=== PATIENT | female | born 1965 | race Caucasian/White ===

== ENCOUNTER 2021-06-21 12:24 | Inpatient (IN) ==
[~2021-06-21 12:24] MED LIST: Buffered Lidocaine 1% SYRIN 1 ml INTRADERM ONE; Clindamycin 900 MG/D5W BAG 900 MG/50 ML BAG IVPB ONE; Dexamethasone IV 4 MG/ML VIAL 1 ml VIAL ONE; Famotidine IV 10 MG/ML 2 ml VIAL (20 mg) IV ONE; Lactated Ringers 1000 ml BAG 1,000 ML IV SCH; Lidocaine 2% PF 5 ML VIAL ONE; Ondansetron 4 mg VIAL 2 MG/ML 2 ml VIAL ONE; Phenylephrine IV 10 MG/ML 1 ml VIAL ONE
[2021-06-21] MEDS ORDERED: Famotidine IV 10 MG/ML 2 ml VIAL (20 mg) ONE (13:36)
[2021-06-21] MEDS ORDERED: Lidocaine 2% PF 5 ML VIAL ONE (13:48)
[2021-06-21] MEDS ORDERED: Midazolam 5 mg/5 ml VIAL 1 mg/ml 5 ml VIAL (5 mg) ONE (13:48)
[2021-06-21] MEDS ORDERED: ROPIVACAINE 5 MG/ML 30 ML BTL (0.5%) ONE (13:48)
[2021-06-21] MEDS ORDERED: fentaNYL 100 mcg/2 ml 50 MCG/ML VIAL ONE (13:48)
[2021-06-21] MEDS ORDERED: Ropivacaine 5 MG/ML 20 ML VIAL 0.5% (100 MG) ONE (14:44)
[2021-06-21] MEDS ORDERED: Propofol 10 mg/ml 100 ML BTL 100 ML ONE (14:52)
[2021-06-21] MEDS ORDERED: Ondansetron 4 mg VIAL 2 MG/ML 2 ml VIAL IV PRN (16:58)
[2021-06-21] MEDS ORDERED: diPHENhydraMINE 25 mg TAB PO PRN (16:58)
[2021-06-21] MEDS ORDERED: Lactulose 30 ml UDC PO PRN (16:58)
[2021-06-21] MEDS ORDERED: diPHENhydraMINE IV 50 MG/ML 1 ml VIAL (BENADRYL) IV PRN (16:58)
[2021-06-21] MEDS ORDERED: Magnesium Hydroxide LIQ 30 ML UDC PO PRN (16:58)
[2021-06-21] MEDS ORDERED: Morphine 2 MG/ML SYRINGE IV PRN (16:58)
[2021-06-21] MEDS ORDERED: Ondansetron ODT 4 mg TAB 4 MG TAB PO PRN (16:58)
[2021-06-21] MEDS ORDERED: Lactated Ringers 1000 ml BAG 1,000 ML IV SCH (17:00)
[2021-06-21] MEDS ORDERED: Fluticasone NASAL SPRAY 50MCG 16 gm SPRAY BTL INTRANASAL PRN (17:05)
[2021-06-21] MEDS ORDERED: HYDROcodone/ACETAMIN 5/325 mg TAB PO PRN (17:05)
[2021-06-21] MEDS: Magnesium Hydroxide LIQ 30 ML UDC PO SCH (21:13)
[2021-06-22] MEDS: Clindamycin 600 MG/D5W BAG 600 MG/50 ML BAG IV SCH ×3 (00:04→15:19)
[2021-06-22 07:25] LABS: Hematocrit 31 % (35-47); Hemoglobin 10.5 g/dL (12.0-16.0); Mean Platelet Volume 8.3 fL (7.4-10.4); Platelet Count 265 10^3/uL (150-450)
[2021-06-22] MEDS: Magnesium Hydroxide LIQ 30 ML UDC PO SCH (07:33)
[2021-06-22 07:44] LABS: Potassium 4.3 mmol/L (3.5-5.0)
[2021-06-22] MEDS ORDERED: Vitamin THERAPEUTIC TAB PO SCH (09:00)
[2021-06-22 15:52] VITALS: BP 119/67
== END 2021-06-22 16:55 | disposition home or self-care (01) | DRG 302 ==
LOC: AA 12:24 → SSU 20:08
PROVIDERS: ADMIT Orthopaedic Surgery Adult Reconstructive Orthopaedic Surgery; ATTEND Orthopaedic Surgery Adult Reconstructive Orthopaedic Surgery